=== PATIENT | female | born 1975 ===

== ENCOUNTER 2019-02-09 10:56 | Day surgery (SDC) | payer OTHER ==
[2019-02-09] MEDS ORDERED: DICLOFENAC SODI50 MG PO (15:59)
[2019-02-09] MEDS ORDERED: ZITHROMAX500 MG PO (15:59)
== END 2019-02-09 22:30 | disposition home or self-care (01) ==
LOC: CIR.AMB 10:56
DX: N84.0 Polyp of corpus uteri (principal)